=== PATIENT | female | born 1935 | race Caucasian/White ===

== ENCOUNTER 2018-06-27 16:02 | Inpatient (IN) | payer MEDICARE, OTHER ==
[~2018-06-27] VITALS: Ht 165.1 cm; Wt 72.3 kg
[~2018-06-27 16:02] MED LIST: ATEN50TA PO; ROSU10TA55 PO; SITA50TA2 PO; VALS1TAB78 PO
--- NOTE | 2018-06-27 16:40 | ERD ---
ER Documentation Chief Complaint Chief Complaint abdominal pain HPI The patient is a 82-year-old female, presenting with right-sided LBP, radiating to the flank, and right lower abdomen. He vomited 3 times initially food then mucus. She had similar symptoms previously from kidney stone. She denies fever, chills, neck pain, chest pain, dyspnea, diarrhea, constipation. She does not smoke, drink Past medical history: Dyslipidemia, hypertension, history of kidney stones, diabetes mellitus Past surgical history: Cholecystectomy ROS All systems reviewed and are negative except as per history of present illness. Medications Home Meds Reported Medications Atorvastatin Calcium (Atorvastatin Calcium) Unknown Strength Tablet, 1 TAB PO QHS, #30 TAB 06/27/18 Insulin Glargine,Hum.rec.anlog (Basaglar Kwikpen U-100) 100 Unit/1 Ml Insuln.pen, 40 UNIT SC QHS, EA 06/27/18 Insulin Aspart* (Novolog Insulin Pen*) 100 Unit/Ml Soln, 0 SC WITH MEALS, EA 06/27/18 Insulin Aspart* (Novolog Insulin Pen*) 100 Unit/Ml Soln, 1 UNIT SC WITH LUNCH, EA INJECT 10-12 UNITS 06/27/18 Aspirin* (Aspirin* EC) 81 Mg Tablet.dr, 81 MG PO DAILY, TAB 06/27/18 Sitagliptin Phos-Metformin Hcl (Janumet XR) 100-1,000 Mg Tbmp.24hr, 1 TAB PO WITH DINNER, #30 TAB 06/27/18 Losartan/Hydrochlorothiazide (Hyzaar 100-12.5 Tablet) 1 Each Tablet, 1 EACH PO QAM, TAB 06/27/18 Atenolol* (Atenolol*) 50 Mg Tablet, 50 MG PO DAILY, #30 TAB 06/27/18 Discontinued Reported Medications Rosuvastatin Calcium* (Crestor*) 10 Mg Tablet, 10 MG PO HS, TAB 03/23/14 Atenolol* (Atenolol*) 50 Mg Tablet, 50 MG PO DAILY, TAB 03/23/14 Valsartan-Hydrochlorothiazide (Valsartan-HCTZ) 160-25 Mg Tablet, 1 EACH PO DAILY, TAB 03/23/14 Discontinued Scripts Sitagliptin* (Januvia*) 50 Mg Tab, 25 MG PO DAILY for 30 Days Prov:ANGELA TRUJILLO 03/27/14 Allergies Allergies: Coded Allergies: No Known Allergy (Verified , 06/27/18) PMhx/Soc History of Surgery: Yes (CHOLECYSTECTOMY, CATARACT) Anesthesia Reaction: No Hx Neurological Disorder: No Hx Respiratory Disorders: No Hx Cardiac Disorders: No Hx Psychiatric Problems: No Hx Miscellaneous Medical Probl: No Hx Alcohol Use: No Hx Substance Use: No Hx Tobacco Use: No Physical Exam Vitals Vital Signs Date Temp Pulse Resp B/P (MAP) Pulse Ox O2 O2 Flow FiO2 Time Delivery Rate 06/27/18 76 18 155/73 98 Nasal 2.0 20:45 (100) Cannula 06/27/18 98.6 80 19 152/68 97 Room Air 18:45 (96) 06/27/18 97.3 74 20 214/84 96 16:08 (127) Physical Exam Const: No acute distress. Head: Atraumatic. Eyes: Normal Conjunctiva. ENT: Normal External Ears, Nose and Mouth. Neck: Full range of motion. No meningismus. Resp: Clear to auscultation bilaterally. Cardio: Regular rate and rhythm. Abd: Soft, non distended, normal bowel sounds, right flank/right lower quadrant tenderness, no rigidity, rebound, CVA tenderness Skin: No petechiae or rashes. Back: No midline or flank tenderness. Ext: No cyanosis, or edema. Neur: Awake and alert. No focal deficit Psych: Normal Mood and Affect. Result Diagram: 06/27/18 1716 06/27/18 1716 Results 24 hrs Laboratory Tests Test 06/27/18 16:49 06/27/18 17:16 Bedside Urine pH (LAB) 5.0 Bedside Urine Protein (LAB) Negative Bedside Urine Glucose (UA) Negative Bedside Urine Ketones (LAB) Negative Bedside Urine Blood 2+ Bedside Urine Nitrite (LAB) Negative Bedside Urine Leukocyte Esterase (L Negative White Blood Count 15.3 10^3/ul Red Blood Count 4.50 10^6/ul Hemoglobin 13.5 g/dl Hematocrit 40.1 % Mean Corpuscular Volume 89.1 fl Mean Corpuscular Hemoglobin 30.0 pg Mean Corpuscular Hemoglobin Concent 33.7 g/dl Red Cell Distribution Width 12.8 % Platelet Count 275 10^3/UL Mean Platelet Volume 9.8 fl Immature Granulocytes % 0.700 % Neutrophils % 81.2 % Lymphocytes % 10.6 % Monocytes % 6.4 % Eosinophils % 0.8 % Basophils % 0.3 % Nucleated Red Blood Cells % 0.0 /100WBC Immature Granulocytes # 0.100 10^3/ul Neutrophils # 12.5 10^3/ul Lymphocytes # 1.6 10^3/ul Monocytes # 1.0 10^3/ul Eosinophils # 0.1 10^3/ul Basophils # 0.0 10^3/ul Nucleated Red Blood Cells # 0.0 10^3/ul Sodium Level 140 mmol/L Potassium Level 3.8 mmol/L Chloride Level 103 mmol/L Carbon Dioxide Level 23 mmol/L Anion Gap 14 Blood Urea Nitrogen 37 mg/dl Creatinine 1.68 mg/dl Est Glomerular Filtrat Rate mL/min mL/min Glucose Level 221 mg/dl Calcium Level 9.2 mg/dl Total Bilirubin 0.5 mg/dl Direct Bilirubin 0.00 mg/dl Indirect Bilirubin 0.5 mg/dl Aspartate Amino Transf (AST/SGOT) 21 IU/L Alanine Aminotransferase (ALT/SGPT) 21 IU/L Alkaline Phosphatase 75 IU/L Total Protein 7.3 g/dl Albumin 4.1 g/dl Globulin 3.20 g/dl Albumin/Globulin Ratio 1.28 Lipase 59 U/L Current Medications Medications Dose Sig/Fredrick Start Time Status Last (Trade) Ordered Route PRN Stop Time Admin Dose Reason Admin Morphine 2 mg ONCE STAT 06/27/18 DC 06/27/18 Sulfate IV 18:06 18:24 (morphine) 06/27/18 18:12 Ondansetron 4 mg ONCE STAT 06/27/18 DC 06/27/18 HCl (Zofran IV 18:06 18:24 Inj) 06/27/18 18:12 Morphine 4 mg ONCE STAT 06/27/18 DC 06/27/18 Sulfate IV 18:56 19:01 (morphine) 06/27/18 18:57 Ceftriaxone 50 ml @ ONCE ONCE 06/27/18 DC 06/27/18 Sodium 100 mls/hr IVPB 19:30 19:26 06/27/18 19:59 1 mg ONCE STAT 06/27/18 DC 06/27/18 Hydromorphone IV 20:07 20:13 HCl 06/27/18 20:08 (Dilaudid) 1 mg STK-MED 06/27/18 DC Hydromorphone ONCE .ROUTE 20:09 HCl 06/27/18 20:10 (Dilaudid) Atenolol 50 mg DAILY PO 06/28/18 UNV (Tenormin) 09:00 Insulin 40 unit QHS SC 06/27/18 UNV Glargine 21:00 (Lantus) Sodium 1,000 ml @ [id number] IV 06/27/18 UNV Chloride 80 mls/hr 20:24 IV Flush 3 ml PER 06/27/18 UNV (NS 3 ml) PROTOCOL IV 20:30 Ondansetron 4 mg Q6H PRN 06/27/18 UNV HCl (Zofran IV 20:30 Inj) NAUSEA/VOMITI NG 650 mg Q6H PRN 06/27/18 UNV Acetaminophen PO .PAIN 1-3 20:30 (Tylenol OR TEMP Tab) 1 tab Q6H PRN 06/27/18 UNV Acetaminophen PO .MOD PAIN 20:30 / 4-6 Hydrocodone Bitart (Keller (5/325)) Morphine 2 mg Q4H PRN 06/27/18 UNV Sulfate IV .SEVERE 20:30 (morphine) PAIN 7-10 Docusate 100 mg Q12H PRN 06/27/18 UNV Sodium PO 20:30 (Colace) .CONSTIPATION Bisacodyl 5 mg DAILY PRN 06/27/18 UNV (Dulcolax) PO 20:30 .CONSTIPATION Tamsulosin 0.4 mg HS PO 06/27/18 UNV HCl 21:00 (Flomax) Procedures/[place] [address] Radiology Main Line: [phone] DIAGNOSTIC IMAGING REPORT Patient: ARIEL MENDES : 1935 Age: 82 Sex: F MR #: [id number] DOS: 06/27/18 5761 Ordering MD: CARRIE RUELAS MD Location: E/R Room/Bed: PROCEDURE: CT Abdomen and Pelvis Without Intravenous Contrast CLINICAL INDICATION: Right-sided abdominal pain. TECHNIQUE: Axial computed tomography images of the abdomen and pelvis without intravenous contrast. Sagittal and coronal reformatted images were created and reviewed. CTDIvol (mGy) = 12.79; total DLP (mGy-cm) = 676.23. This CT exam was performed using one or more of the following dose reduction techniques: automated exposure control, adjustment of the mA and/or kV according to patient size, and/or use of iterative reconstruction technique. DICOM images are available. COMPARISON: None FINDINGS: LUNG BASES: Unremarkable. No mass. No consolidation. ABDOMEN: LIVER: Unremarkable. GALLBLADDER AND BILE DUCTS: The gallbladder is surgically absent. No biliary dilatation. PANCREAS: Unremarkable. No ductal dilation. SPLEEN: Unremarkable. No splenomegaly. ADRENALS: Unremarkable. No mass. KIDNEYS AND URETERS: Mild to moderate right hydroureteronephrosis. Stranding of the right perinephric fat. There is an obstructing distal right ureteral calculus measuring 10 x 7 mm. Findings are consistent with right obstructive uropathy. Nonobstructing bilateral renal calculi are present. The largest calculus is seen in the lower pole of the left kidney measuring 14 mm in diameter. Additional 2-3 mm bilateral calculi are noted. The left ureter is unremarkable. No left-sided obstructive uropathy. STOMACH AND BOWEL: Mild diverticulosis of the colon. No findings of acute diverticulitis. No obstruction. No acute abnormality of the stomach or small [place] wel. PELVIS: APPENDIX: No findings to suggest acute appendicitis. BLADDER: Unremarkable. No stones. REPRODUCTIVE: Unremarkable as visualized. ABDOMEN and PELVIS: INTRAPERITONEAL SPACE: Unremarkable. No free air. No significant fluid collection. BONES/JOINTS: Degenerative spine changes are noted. No acute fracture. No dislocation. SOFT TISSUES: There is fibrosis of the subcutaneous fat of the anterior abdominal wall likely related to multiple injections. VASCULATURE: The abdominal aorta is atherosclerotic. No aneurysm. LYMPH NODES: Unremarkable. No enlarged lymph nodes. IMPRESSION: 1. Mild to moderate right hydroureteronephrosis. Stranding of the right perinephric fat. There is an obstructing distal right ureteral calculus measuring 10 x 7 mm. Findings are consistent with right obstructive uropathy. 2. Mild diverticulosis of the colon. No findings of acute diverticulitis. RPTAT: [facility] Cleve Martínez Physician Puppy Trainer Date Time Electronically viewed and signed by Cleve Martínez, Physician Puppy Trainer on 06/27/2018 18:21 C/ CC: CARRIE RUELAS MD [id number] MEDICAL MAKING DECISION: The patient is 82-year-old female, presenting with acute right ureterolithiasis, consistent with acute right obstructive uropathy, TRACY. She was treated with morphine 2 mg IV for pain, Zofran formula IV for nausea, Rocephin 1 g IV empirically with good response, blood pressure improved The differential diagnoses considered include but are not limited to infected kidney stones, cholelithiasis, cholecystitis, choledocholithiasis, cholangitis, pancreatitis, hepatitis, gastritis, peptic ulcer disease, gastric ulcer, appendicitis, cystitis, diverticulitis, partial small bowel obstruction. Consultation: I discussed the patient with the on-call urologist Dr. Vazquez, who was made aware of the patient condition, the CT scan finding. He accepted the consult Departure Diagnosis: Primary Impression: Ureterolithiasis Additional Impression: TRACY (acute kidney injury) Condition: Stable Comments I discussed the findings with the patient. I discussed the patient with the hospitalist Dr Mckeon at 7:35 pm who was made aware of the lab, the treatment, the patient condition. The patient is admitted to [facility] Disclaimer: Inadvertent spelling and grammatical errors are likely due to EHR/dictation software use and do not reflect on the overall quality of patient care. Also, please note that the electronic time recorded on this note does not necessarily reflect the actual time of the patient encounter. CARRIE RUELAS MD Jun 27, 2018 16:40
[2018-06-27] MEDS ORDERED: morphine 2 MG INJ IV STA (18:06)
[2018-06-27] MEDS ORDERED: ONDANSETRON 4 MG INJ IV STA (18:06)
[2018-06-27] MEDS ORDERED: morphine 4 MG/ML VIAL IV STA (18:56)
[2018-06-27] MEDS ORDERED: CEFTRIAXONE 1 GM/50 ML (PMX) 50 ML IVPB ONE (19:30)
[2018-06-27] MEDS ORDERED: LOSA1TAB9 PO (19:56)
[2018-06-27] MEDS ORDERED: ATEN50TA PO (19:56)
[2018-06-27] MEDS ORDERED: ASPI-817 PO (19:58)
[2018-06-27] MEDS ORDERED: SITA1TBM7 PO (19:58)
[2018-06-27] MEDS ORDERED: NOVO3I SC ×2 (19:59)
[2018-06-27] MEDS ORDERED: INSU100I33 SC (20:00)
[2018-06-27] MEDS ORDERED: ATOR10TA65 PO (20:00)
[2018-06-27] MEDS ORDERED: HYDROmorphONE 2 MG/ML SYG IV STA (20:07)
[2018-06-27] MEDS ORDERED: HYDROmorphONE 1 MG/ML SYG ONE (20:09)
[2018-06-27] MEDS ORDERED: SOD CHLORIDE 0.9% 1,000 ML IV SCH (20:24)
[2018-06-27] MEDS ORDERED: BISACODYL (EC) 5 MG TAB PO PRN (20:30)
[2018-06-27] MEDS ORDERED: DOCUSATE SODIUM 100 MG CAP PO PRN (20:30)
[2018-06-27] MEDS ORDERED: HYDROCODONE/APAP (5/325) TAB PO PRN (20:30)
[2018-06-27] MEDS ORDERED: ONDANSETRON 4 MG INJ IV PRN (20:30)
[2018-06-27] MEDS ORDERED: morphine 2 MG INJ IV PRN (20:30)
[2018-06-27] MEDS ORDERED: ACETAMINOPHEN 325 MG TAB PO PRN (20:30)
[2018-06-27] MEDS ORDERED: NACL 0.9% 3 ML SYG IV SCH (20:30)
--- NOTE | 2018-06-27 20:32 | HP ---
Date/Time of Note Date/Time of Note DATE: 06/27/18 TIME: 20:31 Assessment/Plan VTE Prophylaxis SCD applied (from Nsg): Yes Pharmacological prophylaxis: NA/contraindicated Pharm contraindication: low risk/ambulating Lines/Catheters IV Catheter Type (from Nrsg): Saline Lock Assessment/Plan Hospital Course This is a 82-year-old female being admitted to the [facility] floor for: #1 obstructive uropathy: Secondary to right-sided 10 x 7 mm renal calculus resulting in hydroureteronephrosis. Patient's creatinine is 1.6 today. In 2013 it was 0.89. At the current time she is urinating. She has been seen by the urologist Dr. Martinez already. Plan is for cystoscopy and possible stent versus laser lithotripsy in the a.m. In the meantime we will put the patient on IV fluid hydration with normal saline. We will put the patient on Flomax will be mindful of patient's blood pressure. N.p.o. after midnight. No antibiotics at the current time as patient is afebrile and no signs of any overt infection. #2 hypertension: Patient did present with blood pressures in the 200s however this was likely secondary to pain, blood pressure has gone down to more acceptable levels at the current time. However given patient's acute kidney injury will at the current time hold patient's orbits/HCTZ pill. Will give the patient a dose of Norvasc 2.5 mg. We will need to monitor patient blood pressur e closely as well as she also can be put on Flomax. Discontinue Flomax if blood pressure drops. #3 acute kidney injury: Patient's previous creatinine on file was 0.89 in 2013. It is 1.6 today this is likely a combination of obstructive uropathy as well as ARB effect. Will hold ARB at the current time, continue IV fluid hydration. Urology is already on board. Monitor renal function. Avoid nephrotoxic agents avoid NSAIDs, monitor kidney function. #4 diabetes mellitus: We will check hemoglobin A1c, insulin sliding scale, will adjust patient's Lantus dose overnight as patient will be n.p.o. Resume home regimen once patient is able to tolerate p.o., will hold home oral medications at the current time. #5 #5 hyperlipidemia: We will need to confirm patient's home statin dose, at the cu rrent time we will put the patient on Lipitor 20 mg p.o. daily #6 DVT GI prophylaxis: SCDs, no GI prophylaxis indicated Further treatment strategy will be implemented as per the clinical course. Result Diagram: 06/27/18 1716 06/27/18 1716 Results 24hrs Laboratory Tests Test 06/27/18 16:49 06/27/18 17:16 Bedside Urine pH (LAB) 5.0 Bedside Urine Protein (LAB) Negative Bedside Urine Glucose (UA) Negative Bedside Urine Ketones (LAB) Negative Bedside Urine Blood 2+ H Bedside Urine Nitrite (LAB) Negative Bedside Urine Leukocyte Esterase (L Negative White Blood Count 15.3 #H Red Blood Count 4.50 # Hemoglobin 13.5 # Hematocrit 40.1 # Mean Corpuscular Volume 89.1 Mean Corpuscular Hemoglobin 30.0 Mean Corpuscular Hemoglobin Concent 33.7 Red Cell Distribution Width 12.8 Platelet Count 275 Mean Platelet Volume 9.8 Immature Granulocytes % 0.700 H Neutrophils % 81.2 H Lymphocytes % 10.6 L Monocytes % 6.4 Eosinophils % 0.8 Basophils % 0.3 Nucleated Red Blood Cells % 0.0 Immature Granulocytes # 0.100 H Neutrophils # 12.5 H Lymphocytes # 1.6 Monocytes # 1.0 H Eosinophils # 0.1 Basophils # 0.0 Nucleated Red Blood Cells # 0.0 Sodium Level 140 Potassium Level 3.8 Chloride Level 103 Carbon Dioxide Level 23 Anion Gap 14 H Blood Urea Nitrogen 37 H Creatinine 1.68 H Est Glomerular Filtrat Rate mL/min Glucose Level 221 H Calcium Level 9.2 Total Bilirubin 0.5 Direct Bilirubin 0.00 Indirect Bilirubin 0.5 Aspartate Amino Transf (AST/SGOT) 21 Alanine Aminotransferase (ALT/SGPT) 21 Alkaline Phosphatase 75 Total Protein 7.3 Albumin 4.1 Globulin 3.20 Albumin/Globulin Ratio 1.28 Lipase 59 HPI/ROS Admit Date/Time Admit Date/Time Hx of Present Illness Chief complaint: Right lower quadrant pain, right flank pain This is a 82-year-old female with a past medical history of kidney stones diabetes and hypertension who presented to the emergency department complaining of severe right flank pain. Patient reports nausea and vomiting. She denies any dysuria. She has a history of kidney stones for which she required in the past uteroscopy and laser lithotripsy. CT scan of the abdomen pelvis showed mild to moderate right hydroureteronephrosis with an obstructing right ureteral calculus measuring 10 x 7 mm. There also is a nonobstructing 14 mm stone in the left kidney. Allergies: NKDA Medications: See Jun Const: As per HPI Eyes : No pain discharge or redness or change in visual acuity ENT: No pain, sore throat, congestion, congestion, dysphagia or discharge Respiratory: No shortness of breath, cough, sputum, wheezing, or pleuritic pain Cardiovascular: No chest pain, palpitation, PND, or edema GI : no change in appetite, abdominal pain, nausea, vomiting, diarrhea, constipation, or change in the color his stool Genitourinary: As per HPI Musculoskeletal: No joint pain, back pain, neck pain, restricted range of motion in neck or joints Skin: No rash, bruising or hives Neuro: No headache, dizziness, syncope, seizure, focal weakness Endocrine: No polyuria, polydipsia, temperature intolerance Psych: No hallucination, depression, anxiety or suicidal ideation PMH/Family/Social Past Medical History History of nephrolithiasis, diabetes mellitus, hypertension, hyperlipidemia Coded Allergies: No Known Allergy (Verified , 06/27/18) Past Surgical History Laser lithotripsy, ureteroscopy, cholecystectomy Family History Significant Family History: no pertinent family hx Social History Alcohol Use: none Smoking Status: Never smoker Drug Use: none Exam/Review of Systems Vital Signs Vitals Vital Signs Date Temp Pulse Resp B/P (MAP) Pulse Ox O2 O2 Flow FiO2 Time Delivery Rate 06/27/18 98.6 80 19 152/68 97 Room Air 18:45 (96) Exam Exam General: Patient is a pleasant female currently lying in bed in no acute distress after being medicated HEENT: Atraumatic, normocephalic. The pupils are equal, round and reactive. Extraocular motor are intact Neck: Supple with full range of motion. No rigidity or meningismus Chest: Nontender Lungs: Clear to auscultation bilaterally no crackles rales or wheezing Heart: Normal S1-S2, Regular rhythm and rate. No murmur, S3, or S4 Abdomen: Soft, nontender, nondistended, normal bowel sounds, mild right CVA tenderness palpation Extremities: Normal to inspection, no edema no cyanosis Neurologic: Normal mental status, speech normal, cranial nerves II through XII are intact, motor and sensory are intact, Additional Comments PROCEDURE: CT Abdomen and Pelvis Without Intravenous Contrast CLINICAL INDICATION: Right-sided abdominal pain. TECHNIQUE: Axial computed tomography images of the abdomen and pelvis without intravenous contrast. Sagittal and coronal reformatted images were created and reviewed. CTDIvol (mGy) = 12.79; total DLP (mGy-cm) = 676.23. This CT exam was performed using one or more of the following dose reduction techniques: automated exposure control, adjustment of the mA and/or kV according to patient size, and/or use of iterative reconstruction technique. DICOM images are available. COMPARISON: None FINDINGS: LUNG BASES: Unremarkable. No mass. No consolidation. ABDOMEN: LIVER: Unremarkable. GALLBLADDER AND BILE DUCTS: The gallbladder is surgically absent. No biliary dilatation. PANCREAS: Unremarkable. No ductal dilation. SPLEEN: Unremarkable. No splenomegaly. ADRENALS: Unremarkable. No mass. KIDNEYS AND URETERS: Mild to moderate right hydroureteronephrosis. Stranding of the right perinephric fat. There is an obstructing distal right ureteral calculus measuring 10 x 7 mm. Findings are consistent with right obstructive uropathy. Nonobstructing bilateral renal calculi are present. The largest calculus is seen in the lower pole of the left kidney measuring 14 mm in diameter. Additional 2-3 mm bilateral calculi are noted. The left ureter is unremarkable. No left-sided obstructive uropathy. STOMACH AND BOWEL: Mild diverticulosis of the colon. No findings of acute diverticulitis. No obstruction. No acute abnormality of the stomach or small bowel. PELVIS: APPENDIX: No findings to suggest acute appendicitis. BLADDER: Unremarkable. No stones. REPRODUCTIVE: Unremarkable as visualized. ABDOMEN and PELVIS: INTRAPERITONEAL SPACE: Unremarkable. No free air. No significant fluid collection. BONES/JOINTS: Degenerative spine changes are noted. No acute fracture. No dislocation. SOFT TISSUES: There is fibrosis of the subcutaneous fat of the anterior abdominal wall likely related to multiple injections. VASCULATURE: The abdominal aorta is atherosclerotic. No aneurysm. LYMPH NODES: Unremarkable. No enlarged lymph nodes. IMPRESSION: 1. Mild to moderate right hydroureteronephrosis. Stranding of the right perinephric fat. There is an obstructing distal right ureteral calculus measuring 10 x 7 mm. Findings are consistent with right obstructive uropathy. 2. Mild diverticulosis of the colon. No findings of acute diverticulitis. RPTAT: [facility] Cleve Martínez Physician Date Time Electronically viewed and signed by Cleve Martínez Physician [employer]ident Responder on 06/27/2018 18:21 C/ CC: CARRIE RUELAS MD [id number] NATY GRADY Jun 27, 2018 20:32
[2018-06-27] MEDS ORDERED: TAMSULOSIN (SR) 0.4 MG CAP PO SCH (21:00)
[2018-06-27] MEDS ORDERED: INSULIN GLARGINE [LANtus] 3 ML PEN SC SCH (21:00)
--- NOTE | 2018-06-27 21:39 | CONS ---
Assessment/Plan Assessment/Plan Hospital Course (Demo Recall) 82-year-old female presented to the hospital with severe right flank pain associated with nausea and vomiting. She underwent a CT scan of the abdomen and pelvis and that showed: 1- Mild to moderate right hydroureteronephrosis. Stranding of the right perinephric fat. There is an obstructing distal right ureteral calculus measuring 10 x 7 mm. Findings are consistent with right obstructive uropathy. 2. Mild diverticulosis of the colon. No findings of acute diverticulitis. Patient does have a history of kidney stones and has undergone what appears to be ureteroscopy and laser lithotripsy in the past. Patient remains nauseated and vomiting. On the CT scan she does have a 14 mm stone in the lower pole of the left kidney and that is not symptomatic. On the right side however the stone is 7 x 10 mm in size and it is obstructing and it is located at the lower edge of the sacroiliac joint area. Impression: Right ureteral stone 7 x 10 mm with obstruction and hydronephrosis. Plan: Cystoscopy, Right ureteroscopy, laser lithotripsy and insertion of right ureteral JJ stent. I did explain the procedure to the patient and her son Yoel. I also discussed the possible risks and complications. Success and failure. If I am able to remove the stone I will put the stent with a string attached to its distal end and bring that to the outside. If however I am not able to remove the stone I will try to put the JJ stent and bring her later after 3 weeks and repeat the procedure and by then the ureter is dilated and the procedure would be much easier. They understood all of that and are agreeable to proceed. I will try to schedule her for tomorrow if time is available in the operating room. Consultation Date/Type/Reason Admit Date/Time June 27, 2018 Date of Consultation: Jun 27, 2018 Type of Consult Urology Reason for Consultation Right ureteral stone with obstruction Requesting Provider: NATY GRADY Date/Time of Note DATE: 06/27/18 TIME: 21:28 Hx of Present Illness 82-year-old female presented to the hospital with severe right flank pain associated with nausea and vomiting. She underwent a CT scan of the abdomen and pelvis and that showed: 1- Mild to moderate right hydroureteronephrosis. Stranding of the right perinephric fat. There is an obstructing distal right ureteral calculus measuring 10 x 7 mm. Findings are consistent with right obstructive uropathy. 2. Mild diverticulosis of the colon. No findings of acute diverticulitis. Patient does have a history of kidney stones and has undergone what appears to be ureteroscopy and laser lithotripsy in the past. Constitutional: no complaints Eyes: no complaints ENT: no complaints Respiratory: no complaints; No shortness of breath Cardiovascular: no complaints Gastrointestinal: no complaints, nausea, vomiting Genitourinary: flank pain (Right side) Musculoskeletal: no complaints Skin: no complaints Neurologic: no complaints Endocrine: no complaints Lymphatic: no complaints Psychological: no complaints Immunologic: no complaints Past Medical History Medical History: diabetes, high cholesterol, hypertension Home Meds Reported Medications Atorvastatin Calcium (Atorvastatin Calcium) Unknown Strength Tablet, 1 TAB PO QHS, #30 TAB 06/27/18 Insulin Glargine,Hum.rec.anlog (Basaglar Kwikpen U-100) 100 Unit/1 Ml Insuln.pen, 40 UNIT SC QHS, EA 06/27/18 Insulin Aspart* (Novolog Insulin Pen*) 100 Unit/Ml Soln, 0 SC WITH MEALS, EA 06/27/18 Insulin Aspart* (Novolog Insulin Pen*) 100 Unit/Ml Soln, 1 UNIT SC WITH LUNCH, EA INJECT 10-12 UNITS 06/27/18 Aspirin* (Aspirin* EC) 81 Mg Tablet.dr, 81 MG PO DAILY, TAB 06/27/18 Sitagliptin Phos-Metformin Hcl (Janumet XR) 100-1,000 Mg Tbmp.24hr, 1 TAB PO WITH DINNER, #30 TAB 06/27/18 Losartan/Hydrochlorothiazide (Hyzaar 100-12.5 Tablet) 1 Each Tablet, 1 EACH PO QAM, TAB 06/27/18 Atenolol* (Atenolol*) 50 Mg Tablet, 50 MG PO DAILY, #30 TAB 06/27/18 Discontinued Reported Medications Rosuvastatin Calcium* (Crestor*) 10 Mg Tablet, 10 MG PO HS, TAB 03/23/14 Atenolol* (Atenolol*) 50 Mg Tablet, 50 MG PO DAILY, TAB 03/23/14 Valsartan-Hydrochlorothiazide (Valsartan-HCTZ) 160-25 Mg Tablet, 1 EACH PO DA SADE, TAB 03/23/14 Discontinued Scripts Sitagliptin* (Januvia*) 50 Mg Tab, 25 MG PO DAILY for 30 Days Prov:ANGELA TRUJILLO. 03/27/14 Medications Current Medications Atenolol (Tenormin) 50 mg DAILY PO ; Start 06/28/18 at 09:00; Status UNV Insulin Glargine (Lantus) 40 unit QHS SC ; Start 06/27/18 at 21:00; Status UNV Sodium Chloride 1,000 ml @ 80 mls/hr [id number] IV ; Start 06/27/18 at 20:24 IV Flush (NS 3 ml) 3 ml PER PROTOCOL IV ; Start 06/27/18 at 20:30 Ondansetron HCl (Zofran Inj) 4 mg Q6H PRN IV NAUSEA/VOMITING; Start 06/27/18 at 20:30 Acetaminophen (Tylenol Tab) 650 mg Q6H PRN PO .PAIN 1-3 OR TEMP; Start 06/27/18 at 20:30 Acetaminophen/ Hydrocodone Bitart ([place] (5/325)) 1 tab Q6H PRN PO .MOD PAIN 4- 6; Start 06/27/18 at 20:30 Morphine Sulfate (morphine) 2 mg Q4H PRN IV .SEVERE PAIN 7-10; Start 06/27/18 at 20:30 Docusate Sodium (Colace) 100 mg Q12H PRN PO .CONSTIPATION; Start 06/27/18 at 20:30 Bisacodyl (Dulcolax) 5 mg DAILY PRN PO .CONSTIPATION; Start 06/27/18 at 20:30 Tamsulosin HCl (Flomax) 0.4 mg HS PO ; Start 06/27/18 at 21:00 Allergies: Coded Allergies: No Known Allergy (Verified , 06/27/18) Past Surgical History Past Surgical Hx: cholecystectomy, other (Bilateral eye surgeries) Social History Alcohol Use: none Smoking Status: Never smoker Other Social History She 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 4 para 2, 2 abortions and 2 normal deliveries Exam/Review of Systems Exam Vitals Vital Signs Date Temp Pulse Resp B/P (MAP) Pulse Ox O2 O2 Flow FiO2 Time Delivery Rate 06/27/18 76 18 155/73 98 Nasal 2.0 20:45 (100) Cannula 06/27/18 98.6 18:45 Constitutional: alert Psych: no complaints Head: normocephalic Eyes: nl conjunctiva ENMT: nl external ears & nose Neck: supple, non-tender Respiratory: normal air movement; No wheezing Cardiovascular: No jugular venous distention (JVD) Gastrointestinal: tender (Right side of abdomen) Genitourinary - Female: CVA tenderness (Right flank) Musculoskeletal: nl extremities to inspection Extremities: No calf tenderness Neurological: nl mental status Skin: nl turgor Results Result Diagram: 06/27/18 1716 06/27/18 1716 Results 24hrs Laboratory Tests Test 06/27/18 16:49 06/27/18 17:16 Bedside Urine pH (LAB) 5.0 Bedside Urine Protein (LAB) Negative Bedside Urine Glucose (UA) Negative Bedside Urine Ketones (LAB) Negative Bedside Urine Blood 2+ H Bedside Urine Nitrite (LAB) Negative Bedside Urine Leukocyte Esterase (L Negative White Blood Count 15.3 #H Red Blood Count 4.50 # Hemoglobin 13.5 # Hematocrit 40.1 # Mean Corpuscular Volume 89.1 Mean Corpuscular Hemoglobin 30.0 Mean Corpuscular Hemoglobin Concent 33.7 Red Cell Distribution Width 12.8 Platelet Count 275 Mean Platelet Volume 9.8 Immature Granulocytes % 0.700 H Neutrophils % 81.2 H Lymphocytes % 10.6 L Monocytes % 6.4 Eosinophils % 0.8 Basophils % 0.3 Nucleated Red Blood Cells % 0.0 Immature Granulocytes # 0.100 H Neutrophils # 12.5 H Lymphocytes # 1.6 Monocytes # 1.0 H Eosinophils # 0.1 Basophils # 0.0 Nucleated Red Blood Cells # 0.0 Sodium Level 140 Potassium Level 3.8 Chloride Level 103 Carbon Dioxide Level 23 Anion Gap 14 H Blood Urea Nitrogen 37 H Creatinine 1.68 H Est Glomerular Filtrat Rate mL/min Glucose Level 221 H Calcium Level 9.2 Total Bilirubin 0.5 Direct Bilirubin 0.00 Indirect Bilirubin 0.5 Aspartate Amino Transf (AST/SGOT) 21 Alanine Aminotransferase (ALT/SGPT) 21 Alkaline Phosphatase 75 Total Protein 7.3 Albumin 4.1 Globulin 3.20 Albumin/Globulin Ratio 1.28 [address] scan of the abdomen and pelvis:. 1- Mild to moderate right hydroureteronephrosis. Stranding of the right perinephric fat. There is an obstructing distal right ureteral calculus measuring 10 x 7 mm. Findings are consistent with right obstructive uropathy. 2. Mild diverticulosis of the colon. No findings of acute diverticulitis. Medications Medication Current Medications Atenolol (Tenormin) 50 mg DAILY PO ; Start 06/28/18 at 09:00; Status UNV Insulin Glargine (Lantus) 40 unit QHS SC ; Start 06/27/18 at 21:00; Status UNV Sodium Chloride 1,000 ml @ 80 mls/hr [id number] IV ; Start 06/27/18 at 20:24 IV Flush (NS 3 ml) 3 ml PER PROTOCOL IV ; Start 06/27/18 at 20:30 Ondansetron HCl (Zofran Inj) 4 mg Q6H PRN IV NAUSEA/VOMITING; Start 06/27/18 at 20:30 Acetaminophen (Tylenol Tab) 650 mg Q6H PRN PO .PAIN 1-3 OR TEMP; Start 06/27/18 at 20:30 Acetaminophen/ Hydrocodone Bitart ([place] (5/325)) 1 tab Q6H PRN PO .MOD PAIN 4- 6; Start 06/27/18 at 20:30 Morphine Sulfate (morphine) 2 mg Q4H PRN IV .SEVERE PAIN 7-10; Start 06/27/18 at 20:30 Docusate Sodium (Colace) 100 mg Q12H PRN PO .CONSTIPATION; Start 06/27/18 at 20:30 Bisacodyl (Dulcolax) 5 mg DAILY PRN PO .CONSTIPATION; Start 06/27/18 at 20:30 Tamsulosin HCl (Flomax) 0.4 mg HS PO ; Start 06/27/18 at 21:00 ASIM DALLAS MD Jun 27, 2018 21:39
[2018-06-27] MEDS ORDERED: SOD CHLORIDE 0.45% 1,000 ML IV SCH (22:00)
[2018-06-27] MEDS ORDERED: INSULIN GLARGINE [LANTus] (100 UNITS/ML) SYG SC SCH (22:04)
[2018-06-27] MEDS ORDERED: HYDROmorphONE 0.5 MG/0.5 ML SYG IV PRN (22:30)
[2018-06-27] MEDS ORDERED: AMLODIPINE 2.5 MG TAB PO ONE (23:00)
[2018-06-27] MEDS ORDERED: hydrALAzine 20 MG INJ IV PRN (23:00)
[2018-06-27] MEDS ORDERED: INSULIN GLARGINE [LANTus] (100 UNITS/ML) SYG SC ONE (23:30)
[2018-06-27 23:48] VITALS: Ht 165.1 cm; Wt 72.3 kg
[2018-06-27 23:58] VITALS: BP 137/68; PULSE 70; RESP 16
[2018-06-28] VITALS (16 sets, daily range): BP systolic 82–131; BP diastolic 46–63; PULSE 71–95; RESP 11–20
[2018-06-28] MEDS: DEXTROSE 5%-0.45% NACL 1,000 ML IV SCH ×2 (00:12→12:00)
[2018-06-28] MEDS ORDERED: DEXTROSE 50% 50 ML SYRINGE IV PRN ×2 (02:00)
[2018-06-28] MEDS ORDERED: GLUCOSE GEL 15 GRAM TUBE BUCCAL PRN (02:00)
[2018-06-28] MEDS ORDERED: GLUCOSE GEL 15 GRAM TUBE PO PRN ×2 (02:00)
[2018-06-28] MEDS ORDERED: GLUCAGON 1 MG INJ IM PRN (02:00)
[2018-06-28] MEDS ORDERED: EPHEDrine SULFATE 50 MG/5 ML SYG ONE (07:00)
[2018-06-28] MEDS: ATENOLOL 50 MG TAB PO SCH (08:00)
[2018-06-28] MEDS: INSULIN ASPART [NOVOLOG] 3 ML PEN SC SCH ×4 (10:56→20:47)
[2018-06-28] MEDS ORDERED: INSULIN ASPART [NOVOLOG] 3 ML PEN SC SCH ×2 (11:40)
--- NOTE | 2018-06-28 12:25 | HPN ---
Date/Time of Note Date/Time of Note DATE: 06/28/18 TIME: 12:24 Interval H&P Admission Note Pt. seen H&P reviewed: No system changes ASIM DALLAS MD Jun 28, 2018 12:25
--- NOTE | 2018-06-28 12:25 | PREAC ---
Date/Time of Note Date/Time of Note DATE: 06/28/18 TIME: 12:23 Anesthesia Eval and Record Evaluation Time Pre-Procedure Interview DATE: 06/28/18 TIME: 12:23 Age 82 Sex female NPO: 8 hrs Preoperative diagnosis Right Kidney Stone Planned procedure Cystoscopy and Lithotripsy right side, Ureteroscopy and stent placement Past Medical History Past Medical History: Includes Cardio: HTN, Dyslipidemia Endo: Diabetes Musculoskeletal: Rheumatoid arthritis Renal: CKD GI: Obesity Heme: Anemia Surgery & Anesthesia Issues No known issue Meds Anticoagulation: No Beta Matt within 24 hr: Yes Reported Medications Atorvastatin Calcium (Atorvastatin Calcium) Unknown Strength Tablet, 1 TAB PO QHS, #30 TAB 06/27/18 Insulin Glargine,Hum.rec.anlog (Basaglar Kwikpen U-100) 100 Unit/1 Ml Insuln.pen, 40 UNIT SC QHS, EA 06/27/18 Insulin Aspart* (Novolog Insulin Pen*) 100 Unit/Ml Soln, 0 SC WITH MEALS, EA 06/27/18 Insulin Aspart* (Novolog Insulin Pen*) 100 Unit/Ml Soln, 1 UNIT SC WITH LUNCH, EA INJECT 10-12 UNITS 06/27/18 Aspirin* (Aspirin* EC) 81 Mg Tablet.dr, 81 MG PO DAILY, TAB 06/27/18 Sitagliptin Phos-Metformin Hcl (Janumet XR) 100-1,000 Mg Tbmp.24hr, 1 TAB PO WITH DINNER, #30 TAB 06/27/18 Losartan/Hydrochlorothiazide (Hyzaar 100-12.5 Tablet) 1 Each Tablet, 1 EACH PO QAM, TAB 06/27/18 Atenolol* (Atenolol*) 50 Mg Tablet, 50 MG PO DAILY, #30 TAB 06/27/18 Discontinued Reported Medications Rosuvastatin Calcium* (Crestor*) 10 Mg Tablet, 10 MG PO HS, TAB 03/23/14 Atenolol* (Atenolol*) 50 Mg Tablet, 50 MG PO DAILY, TAB 03/23/14 Valsartan-Hydrochlorothiazide (Valsartan-HCTZ) 160-25 Mg Tablet, 1 EACH PO DAILY, TAB 03/23/14 Discontinued Scripts Sitagliptin* (Januvia*) 50 Mg Tab, 25 MG PO DAILY for 30 Days Prov:ANGELA TRUJILLO 03/27/14 Current Medications Atenolol (Tenormin) 50 mg DAILY PO ; Start 06/28/18 at 09:00 IV Flush (NS 3 ml) 3 ml PER PROTOCOL IV ; Start 06/27/18 at 20:30 Ondansetron HCl (Zofran Inj) 4 mg Q6H PRN IV NAUSEA/VOMITING; Start 06/27/18 at 20:30 Acetaminophen (Tylenol Tab) 650 mg Q6H PRN PO .PAIN 1-3 OR TEMP; Start 06/27/18 at 20:30 Acetaminophen/ Hydrocodone Bitart ([place] (5/325)) 1 tab Q6H PRN PO .MOD PAIN 4- 6; Start 06/27/18 at 20:30 Docusate Sodium (Colace) 100 mg Q12H PRN PO .CONSTIPATION; Start 06/27/18 at 20:30 Bisacodyl (Dulcolax) 5 mg DAILY PRN PO .CONSTIPATION; Start 06/27/18 at 20:30 Hydromorphone HCl (Dilaudid) 0.5 mg Q4H PRN IV SEVERE PAIN LEVEL 7-10 Last administered on 06/28/18at 10:30; Admin Dose 0.5 MG; Start 06/27/18 at 22:30 Hydralazine HCl (Apresoline) 10 mg Q4H PRN IV ELEVATED BLOOD PRESSURE; Start 06/27/18 at 23:00 Dextrose/Sodium Chloride 1,000 ml @ 80 mls/hr [id number] IV Last administered on 06/28/18at 00:12; Admin Dose 80 MLS/HR; Start 06/27/18 at 23:30 Insulin Glargine (Lantus) 40 units HS SC ; Start 06/28/18 at 21:00 Miscellaneous Information 1 ea NOTE XX ; Start 06/28/18 at 02:00 Glucose (Glutose) 15 gm Q15M PRN PO DECREASED GLUCOSE; Start 06/28/18 at 02:00 Glucose (Glutose) 22.5 gm Q15M PRN PO DECREASED GLUCOSE; Start 06/28/18 at 02:00 Dextrose (D50w Syringe) 25 ml Q15M PRN IV DECREASED GLUCOSE; Start 06/28/18 at 02:00 Dextrose (D50w Syringe) 50 ml Q15M PRN IV DECREASED GLUCOSE; Start 06/28/18 at 02:00 Glucagon (Glucagen) 1 mg Q15M PRN IM DECREASED GLUCOSE; Start 06/28/18 at 02:00 Glucose (Glutose) 15 gm Q15M PRN BUCCAL DECREASED GLUCOSE; Start 06/28/18 at 02:00 Atorvastatin Calcium (Lipitor) 20 mg HS PO ; Start 06/28/18 at 21:00 Insulin Aspart (Novolog Insulin Pen) NOVOLOG *MODERATE* ALGORI... Q4 SC Last administered on 06/28/18at 10:56; Admin Dose 6 UNIT; Start 06/28/18 at 10:30 Meds reviewed: Yes Allergies Coded Allergies: No Known Allergy (Verified , 06/27/18) Allergies Reviewed: Yes Labs/Studies Labs Reviewed: Reviewed by anesthesiologist Result Diagram: 06/28/18 0439 06/28/18 0439 Laboratory Tests 06/28/18 04:39 test: N/A Studies: ECG (n/a), CXR (n/a) Pre-procedure Exam Last vitals Vital Signs Date Temp Pulse Resp B/P (MAP) Pulse Ox O2 O2 Flow FiO2 Time Delivery Rate 06/28/18 112/54 08:58 (73) 06/28/18 98.0 71 18 95 07:27 06/28/18 Room Air 01:30 06/27/18 2.0 20:45 Airway: Adequate mouth opening, Adequate thyromental dist Mallampati: Mallampati II Teeth: Normal Lung: Normal Heart: Normal ASA Physical Status ASA physical status: 3 Emergency: None Planned Anesthetic General/MAC: ETT Planned Pain Management Parenteral pain med Pre-operative Attestations Prior to commencing anesthesia and surgery, the patient was re-evaluated, there was verification of: *The patient's identity *The results of appropriate recent lab work and preoperative vital signs *The above evaluation not changing prior to induction *Anesthetic plan, risk benefits, alternative and complications discussed with patient/family; questions answered; patient/family understands, accepts and wishes to proceed. PAULA MCGRAW MD Jun 28, 2018 12:25
[2018-06-28] MEDS ORDERED: ROCURONIUM 50 MG INJ ONE (12:34)
[2018-06-28] MEDS ORDERED: PROPOFOL 20 ML ONE (12:34)
[2018-06-28] MEDS ORDERED: FENTAnyl 50 MCG/ML VIAL ONE (12:34)
[2018-06-28] MEDS ORDERED: ONDANSETRON 4 MG INJ ONE (12:42)
[2018-06-28] MEDS ORDERED: METOCLOPRAMIDE 10 MG INJ ONE (12:42)
[2018-06-28] MEDS ORDERED: PHENYLephrine (100 MCG/ML) 5ML SYG ONE (12:42)
[2018-06-28] MEDS ORDERED: DEXAMETHASONE 4 MG/ML 5 ML INJ ONE (12:42)
[2018-06-28] MEDS ORDERED: CEFAZOLIN 1 GM INJ ONE (12:42)
[2018-06-28] MEDS ORDERED: LIDOCAINE 2% 20 ML UROJET SYRINGE ONE (12:48)
[2018-06-28] MEDS ORDERED: hydrALAzine 20 MG INJ IV PRN (13:00)
[2018-06-28] MEDS ORDERED: ONDANSETRON 4 MG INJ IV PRN (13:00)
[2018-06-28] MEDS ORDERED: DIPHENHYDRAMINE 50 MG INJ IV PRN (13:00)
[2018-06-28] MEDS ORDERED: LABETALOL HCL 20MG INJ IV PRN (13:00)
[2018-06-28] MEDS ORDERED: METOCLOPRAMIDE 10 MG INJ IV PRN (13:00)
[2018-06-28] MEDS ORDERED: HYDROmorphONE 1 MG/5 ML IV SYRINGE IV PRN ×3 (13:00)
[2018-06-28] MEDS ORDERED: MEPERIDINE 25 MG INJ IV PRN (13:00)
[2018-06-28] MEDS ORDERED: EPHEDrine SULFATE 50 MG/5 ML SYG IV PRN (13:00)
[2018-06-28] MEDS ORDERED: FENTAnyl 50 MCG/ML VIAL IV PRN ×3 (13:00)
[2018-06-28] MEDS ORDERED: OXYCODONE/ACETAMINOPHEN (5/325) TAB PO PRN (13:00)
[2018-06-28] MEDS ORDERED: LIDOCAINE 2% JEL.PF.APP 5 ML UROJET SYRINGE MM ONE (13:02)
[2018-06-28] MEDS ORDERED: SUGAMMADEX SODIUM 200 MG/2 ML VIAL IV ONE (13:49)
--- NOTE | 2018-06-28 13:59 | OPR ---
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 The patient received 2 g of Ancef IV at the start of the procedure. Timeout was done and the patient was identified by her name,birthdate and the procedure and the side of the procedure. The patient was then positioned in the lithotomy position and the genital area was prepped and draped in the usual sterile manner. A 21 Malian cystoscope sheath was introduced into the bladder and urine was collected for culture and sensitivity. Right ureteral orifice was identified and then cannulated with a 5 Malian open ended ureteral catheter. A 0.035 zip wire was advanced through the open ended catheter all the way up to the kidney. The open-ended was removed leaving the zip wire in place. The open-ended was then introduced through the second working channel of the scope and the ureteral orifice was cannulated again and a 0.035 sensor wire was passed all the way up to the kidney. The open-ended was removed leaving the sensor wire in place. Then the cystoscope was removed. The sensor wire was used as a safety wire and the zip wire was used to advance the rigid ureteroscope on it into the ureter. The stone was then visualized and broken with the holmium lase r into pieces. These pieces were basketed and dropped into the bladder until the ureter was free of stone fragments. The ureteroscope was then removed. Cystoscopy was done again and the stone fragments were drained out of the bladder. Then the cystoscope was reintroduced into the bladder over the safety wire and a 6 Malian by 22 cm long JJ stent was advanced on the sensor wire, had its proximal end curling into the kidney and the distal end curling into the bladder. The distal end is connected to a string that was taped to the patient's right groin. The patient was transferred to recovery room in stable and satisfactory condition ASIM DALLAS MD Jun 28, 2018 13:59
--- NOTE | 2018-06-28 14:03 | PAC ---
Date/Time of Note Date/Time of Note DATE: 06/28/18 TIME: 14:01 Post-Anesthesia Notes Post-Anesthesia Note Last documented vital signs Vital Signs Date Temp Pulse Resp B/P (MAP) Pulse Ox O2 O2 Flow FiO2 Time Delivery Rate 06/28/18 98.0 78 18 112/54 99 Face Mask 8 L 14:08 (73) 06/28/18 98.0 71 18 95 07:27 06/28/18 Room Air 01:30 06/27/18 2.0 20:45 Activity: WNL Respiratory function: WNL Cardiovascular function: WNL Mental status: Baseline Pain reasonably controlled: Yes Hydration appropriate: Yes Nausea/Vomiting absent: Yes PAULA MCGRAW MD Jun 28, 2018 14:02
--- NOTE | 2018-06-28 17:59 | PN ---
Date/Time of Note Date/Time of Note DATE: 06/28/18 TIME OF EVALUATION: 10:51 Assessment/Plan VTE Prophylaxis Risk score (from Ns)>0 risk: 2 SCD applied (from Ns): Yes Pharmacological prophylaxis: NA/contraindicated Pharm contraindication: surgical contra Lines/Catheters IV [facility] Type [facility]from [facility] Peripheral IV Urinary Cath still in place: No Assessment/Plan Hospital Course S: No new complaints, for OR intervention today O: General: A&O x3, answering questions appropriately, elderly HEENT: NC/ AT. PERRL. EOM intact Neck: supple CVS: S1, S2, RRR. no murmurs. no pain on chest wall palpation Lungs: CTA b/l. no wheezing or rhonchi Abd: soft, nontender, +BS Ext: moving all extremities skin: no rashes assessment and plan: This is a 82-year-old female with a past medical history of kidney stones diabetes and hypertension who presented to the emergency department complaining of severe right flank pain, nausea and vomiting. She is currently admitted and managed as follows: #1 obstructive uropathy: - Secondary to right-sided 10 x 7 mm renal calculus resulting in hydroureteronephrosis. -appreciate urology input, operative intervention today #2 hypertension -improved control, monitor and adjust regimen as indicated #3 acute kidney injury r/o CKD -creatinine satying roughly the same, continue to monitor, continue to hold ARB -will get Nephro consult #4 diabetes mellitus: aic 6.9 -good control on home regimen, no changes at this time #5 hyperlipidemia: continue statin #6 DVT GI prophylaxis: SCDs, no GI prophylaxis indicated Further treatment strategy will be implemented as per the clinical course. Result Diagram: 06/28/18 0439 06/28/18 0439 Results 24hrs Laboratory Tests Test 06/27/18 22:57 06/28/18 00:02 06/28/18 00:54 06/28/18 04:39 Bedside Glucose 165 184 217 White Blood Count 13.4 H Red Blood Count 3.93 L Hemoglobin 11.8 L Hematocrit 35.0 L Mean Corpuscular 89.1 Volume Mean Corpuscular 30.0 Hemoglobin Mean Corpuscular 33.7 Hemoglobin Concen t Red Cell 12.8 Distribution Width Platelet Count 257 Mean Platelet 10.2 Volume Immature 0.500 H Granulocytes % Neutrophils % 76.0 Lymphocytes % 16.2 Monocytes % 6.7 Eosinophils % 0.3 Basophils % 0.3 Nucleated Red 0.0 Blood Cells % Immature 0.070 H Granulocytes # Neutrophils # 10.2 H Lymphocytes # 2.2 Monocytes # 0.9 Eosinophils # 0.0 Basophils # 0.0 Nucleated Red 0.0 Blood Cells # Prothrombin Time 12.8 Prothrombin Time 1.0 Ratio INR International 0.95 Normalized Ratio Activated 29.9 Partial Thrombopl ast Time Sodium Level 137 Potassium Level 4.1 Chloride Level 101 Carbon Dioxide 25 Level Anion Gap 11 Blood Urea 35 H Nitrogen Creatinine 1.69 H Est Glomerular Filtrat Rate mL/min Glucose Level 255 H Hemoglobin A1c 6.9 H Calcium Level 8.3 L Magnesium Level 1.5 L Total Bilirubin 0.4 Direct Bilirubin 0.00 Indirect 0.4 Bilirubin Aspartate Amino 27 Transf (AST/SGOT) Alanine 28 Aminotransferase (ALT/SGPT) Alkaline 55 Phosphatase Total Protein 6.1 # Albumin 3.3 Globulin 2.80 Albumin/Globulin 1.17 Ratio Thyroid 1.800 Stimulating Hormone (TSH) Test 06/28/18 09:25 06/28/18 09:38 06/28/18 10:53 06/28/18 12:00 Bedside Glucose 250 H 243 H Lab Scanned LAB Report Urine Color YELLOW Urine Clarity SLIGHTLY CLOUDY A Urine pH 5.0 Urine Specific 1.013 [place] Urine Ketones NEGATIVE Urine Nitrite NEGATIVE Urine Bilirubin NEGATIVE Urine NEGATIVE Urobilinogen Urine Leukocyte NEGATIVE Esterase Urine Microscopic 38 H RBC Urine Microscopic 1 WBC Urine Bacteria FEW A Urine Hemoglobin 3+ H Urine Glucose NEGATIVE Urine Total NEGATIVE Protein Test 06/28/18 14:01 06/28/18 17:01 Bedside Glucose 163 210 Exam/Review of Systems Exam Vitals Vital Signs Date Temp Pulse Resp B/P (MAP) Pulse Ox O2 O2 Flow FiO2 Time Delivery Rate 06/28/18 76 20 101/47 98 Room Air 14:48 (65) 06/28/18 8.0 14:08 06/28/18 98.2 14:06 Results Results 24hrs Laboratory Tests Test 06/27/18 22:57 06/28/18 00:02 06/28/18 00:54 06/28/18 04:39 Bedside Glucose 165 184 217 White Blood Count 13.4 H Red Blood Count 3.93 L Hemoglobin 11.8 L Hematocrit 35.0 L Mean Corpuscular 89.1 Volume Mean Corpuscular 30.0 Hemoglobin Mean Corpuscular 33.7 Hemoglobin Concen t Red Cell 12.8 Distribution Width Platelet Count 257 Mean Platelet 10.2 Volume Immature 0.500 H Granulocytes % Neutrophils % 76.0 Lymphocytes % 16.2 Monocytes % 6.7 Eosinophils % 0.3 Basophils % 0.3 Nucleated Red 0.0 Blood Cells % Immature 0.070 H Granulocytes # Neutrophils # 10.2 H Lymphocytes # 2.2 Monocytes # 0.9 Eosinophils # 0.0 Basophils # 0.0 Nucleated Red 0.0 Blood Cells # Prothrombin Time 12.8 Prothrombin Time 1.0 Ratio INR International 0.95 Normalized Ratio Activated 29.9 Partial Thrombopl ast Time Sodium Level 137 Potassium Level 4.1 Chloride Level 101 Carbon Dioxide 25 Level Anion Gap 11 Blood Urea 35 H Nitrogen Creatinine 1.69 H Est Glomerular Filtrat Rate mL/min Glucose Level 255 H Hemoglobin A1c 6.9 H Calcium Level 8.3 L Magnesium Level 1.5 L Total Bilirubin 0.4 Direct Bilirubin 0.00 Indirect 0.4 Bilirubin Aspartate Amino 27 Transf (AST/SGOT) Alanine 28 Aminotransferase (ALT/SGPT) Alkaline 55 Phosphatase Total Protein 6.1 # Albumin 3.3 Globulin 2.80 Albumin/Globulin 1.17 Ratio Thyroid 1.800 Stimulating Hormone (TSH) Test 06/28/18 09:25 06/28/18 09:38 06/28/18 10:53 06/28/18 12:00 Bedside Glucose 250 H 243 H Lab Scanned LAB Report Urine Color YELLOW Urine Clarity SLIGHTLY CLOUDY A Urine pH 5.0 Urine Specific 1.013 [place] Urine Ketones NEGATIVE Urine Nitrite NEGATIVE Urine Bilirubin NEGATIVE Urine NEGATIVE Urobilinogen Urine Leukocyte NEGATIVE Esterase Urine Microscopic 38 H RBC Urine Microscopic 1 WBC Urine Bacteria FEW A Urine Hemoglobin 3+ H Urine Glucose NEGATIVE Urine Total NEGATIVE Protein Test 06/28/18 14:01 06/28/18 17:01 Bedside Glucose 163 210 Medications Medication Current Medications Atenolol (Tenormin) 50 mg DAILY PO ; Start 06/28/18 at 09:00 IV Flush (NS 3 ml) 3 ml PER PROTOCOL IV ; Start 06/27/18 at 20:30 Ondansetron HCl (Zofran Inj) 4 mg Q6H PRN IV NAUSEA/VOMITING; Start 06/27/18 at 20:30 Acetaminophen (Tylenol Tab) 650 mg Q6H PRN PO .PAIN 1-3 OR TEMP; Start 06/27/18 at 20:30 Acetaminophen/ Hydrocodone Bitart ([place] (5/325)) 1 tab Q6H PRN PO .MOD PAIN 4- 6; Start 06/27/18 at 20:30 Docusate Sodium (Colace) 100 mg Q12H PRN PO .CONSTIPATION; Start 06/27/18 at 20:30 Bisacodyl (Dulcolax) 5 mg DAILY PRN PO .CONSTIPATION; Start 06/27/18 at 20:30 Hydromorphone HCl (Dilaudid) 0.5 mg Q4H PRN IV SEVERE PAIN LEVEL 7-10 Last administered on 06/28/18at 10:30; Admin Dose 0.5 MG; Start 06/27/18 at 22:30 Hydralazine HCl (Apresoline) 10 mg Q4H PRN IV ELEVATED BLOOD PRESSURE; Start 06/27/18 at 23:00 Insulin Glargine (Lantus) 40 units HS SC ; Start 06/28/18 at 21:00 Miscellaneous Information 1 ea NOTE XX ; Start 06/28/18 at 02:00 Glucose (Glutose) 15 gm Q15M PRN PO DECREASED GLUCOSE; Start 06/28/18 at 02:00 Glucose (Glutose) 22.5 gm Q15M PRN PO DECREASED GLUCOSE; Start 06/28/18 at 02:00 Dextrose (D50w Syringe) 25 ml Q15M PRN IV DECREASED GLUCOSE; Start 06/28/18 at 02:00 Dextrose (D50w Syringe) 50 ml Q15M PRN IV DECREASED GLUCOSE; Start 06/28/18 at 02:00 Glucagon (Glucagen) 1 mg Q15M PRN IM DECREASED GLUCOSE; Start 06/28/18 at 02:00 Glucose (Glutose) 15 gm Q15M PRN BUCCAL DECREASED GLUCOSE; Start 06/28/18 at 02:00 Atorvastatin Calcium (Lipitor) 20 mg HS PO ; Start 06/28/18 at 21:00 Hydromorphone HCl (Dilaudid) 0.2 mg PACU PRN IV MILD PAIN 1-3; Start 06/28/18 at 13:00; Stop 06/28/18 at 20:00 Hydromorphone HCl (Dilaudid) 0.4 mg PACU PRN IV MOD PAIN 4-6; Start 06/28/18 at 13:00; Stop 06/28/18 at 20:00 Hydromorphone HCl (Dilaudid) 0.6 mg PACU PRN IV SEVERE PAIN 7-10; Start 06/28/18 at 13:00; Stop 06/28/18 at 20:00 Fentanyl (Sublimaze) 25 mcg PACU ORDER PRN IV MILD PAIN 1-3; Start 06/28/18 at 13:00; Stop 06/28/18 at 20:00 Fentanyl (Sublimaze) 50 mcg PACU ORDER PRN IV MOD PAIN 4-6; Start 06/28/18 at 13:00; Stop 06/28/18 at 20:00 Fentanyl (Sublimaze) 75 mcg PACU ORDER PRN IV SEVERE PAIN 7-10; Start 06/28/18 at 13:00; Stop 06/28/18 at 20:00 Oxycodone/ Acetaminophen (Percocet (5/ 325)) 1 tab PACU ORDER PRN PO .PAIN 1-5; Start 06/28/18 at 13:00; Stop 06/28/18 at 20:00 Ondansetron HCl (Zofran Inj) 4 mg PACU ORDER PRN IV NAUSEA/VOMITING; Start 06/28/18 at 13:00; Stop 06/28/18 at 20:00 Metoclopramide HCl (Reglan) 10 mg PACU ORDER PRN IV NAUSEA/VOMITING; Start 06/28/18 at 13:00; Stop 06/28/18 at 20:00 Labetalol HCl (Labetalol) 5 mg PACU ORDER PRN IV HIGH BLOOD PRESSURE; Start 06/28/18 at 13:00; Stop 06/28/18 at 20:00 Hydralazine HCl (Apresoline) 5 mg PACU ORDER PRN IV HIGH BLOOD PRESSURE; Start 06/28/18 at 13:00; Stop 06/28/18 at 20:00 Ephedrine Sulfate 5 mg PACU ORDER PRN IV BLOOD PRESSURE SUPPORT; Start 06/28/18 at 13:00; Stop 06/28/18 at 20:00 Meperidine HCl (Demerol) 25 mg PACU ORDER PRN IV .RIGORS; Start 06/28/18 at 13:00; Stop 06/28/18 at 20:00 Diphenhydramine HCl (Benadryl) 25 mg PACU ORDER PRN IV .PRURITUS; Start 06/28/18 at 13:00; Stop 06/28/18 at 20:00 Insulin Aspart (Novolog Insulin Pen) NOVOLOG *MODERATE* ALGORITHM WITH MEALS BEDTIME SC Last administered on 06/28/18at 17:07; Admin Dose 4 UNIT; Start 06/28/18 at 17:55 ANGELA TRUJILLO Jun 28, 2018 17:58
[2018-06-28] MEDS ORDERED: ATORVASTATIN 20 MG TAB PO SCH (21:00)
[2018-06-28] MEDS ORDERED: INSULIN ASPART [NOVOLOG] 3 ML PEN SC ONE (21:00)
[2018-06-28] MEDS ORDERED: INSULIN GLARGINE [LANTus] (100 UNITS/ML) SYG SC SCH (21:00)
[2018-06-29] MEDS ORDERED: INSULIN ASPART [NOVOLOG] 3 ML PEN SC ONE (00:30)
[2018-06-29 02:47] VITALS: BP 123/60; PULSE 90; RESP 18
[2018-06-29 07:34] VITALS: BP 112/53; PULSE 93; RESP 18
--- NOTE | 2018-06-29 08:15 | CONS ---
Consult Date/Type/Reason Admit Date/Time Jun 27, 2018 at 19:35 Initial Consult Date 06/27/18 Type of Consultation: Urology Reason for Consultation Right ureteral stone Requesting Provider: NATY GRADY Date/Time of Note DATE: 06/29/18 TIME: 08:12 Subjective The patient states she is feeling better and has no pain but her urine is bloody. Objective Vitals Vital Signs Date Temp Pulse Resp B/P (MAP) Pulse Ox O2 O2 Flow FiO2 Time Delivery Rate 06/29/18 97.8 93 18 112/53 95 07:34 (72) 06/28/18 Room Air 14:48 06/28/18 8.0 14:08 Intake and Output 06/28/18 06/28/18 06/29/18 1515:00 23:00 07:00 IntakeIntake Total 2100 ml OutputOutput Total 5 ml BalanceBalance 2095 ml Exam Abdomen is soft and there is no flank tenderness Results/Medications Result Diagram: 06/29/18 0429 06/29/18 0429 Results 24 hrs Laboratory Tests Test 06/28/18 09:25 06/28/18 09:38 06/28/18 10:53 06/28/18 12:00 Bedside Glucose 250 H 243 H Lab Scanned LAB Report Urine Color YELLOW Urine Clarity SLIGHTLY CLOUDY A Urine pH 5.0 Urine Specific 1.013 [place] Urine Ketones NEGATIVE Urine Nitrite NEGATIVE Urine Bilirubin NEGATIVE Urine NEGATIVE Urobilinogen Urine Leukocyte NEGATIVE Esterase Urine Microscopic 38 H RBC Urine Microscopic 1 WBC Urine Bacteria FEW A Urine Hemoglobin 3+ H Urine Glucose NEGATIVE Urine Total NEGATIVE Protein Test 06/28/18 14:01 06/28/18 17:01 06/28/18 20:34 06/28/18 20:37 Bedside Glucose 163 210 403 *H 368 H Test 06/28/18 20:46 06/29/18 00:15 06/29/18 01:54 06/29/18 04:29 Glucose Level 428 #*H 258 #H Bedside Glucose 358 H 305 H White Blood Count 15.2 H Red Blood Count 3.91 L Hemoglobin 11.5 L Hematocrit 34.8 L Mean Corpuscular 89.0 Volume Mean Corpuscular 29.4 Hemoglobin Mean Corpuscular 33.0 Hemoglobin Concen t Red Cell 12.8 Distribution Width Platelet Count 284 Mean Platelet 10.2 Volume Immature 0.700 H Granulocytes % Neutrophils % 87.7 H Lymphocytes % 7.4 L Monocytes % 4.0 Eosinophils % 0.0 Basophils % 0.2 Nucleated Red 0.0 Blood Cells % Immature 0.110 H Granulocytes # Neutrophils # 13.3 H Lymphocytes # 1.1 Monocytes # 0.6 Eosinophils # 0.0 Basophils # 0.0 Nucleated Red 0.0 Blood Cells # Sodium Level 141 Potassium Level 4.1 Chloride Level 107 Carbon Dioxide 24 Level Anion Gap 10 Blood Urea 35 H Nitrogen Creatinine 1.36 H Est Glomerular Filtrat Rate mL/min Calcium Level 8.7 Total Bilirubin 0.2 Direct Bilirubin 0.00 Indirect 0.2 Bilirubin Aspartate Amino 19 Transf (AST/SGOT) Alanine 26 Aminotransferase (ALT/SGPT) Alkaline 58 Phosphatase Total Protein 6.1 Albumin 3.4 Globulin 2.70 Albumin/Globulin 1.25 Ratio Home Meds Reported Medications Atorvastatin Calcium (Atorvastatin Calcium) Unknown Strength Tablet, 1 TAB PO QHS, #30 TAB 06/27/18 Insulin Glargine,Hum.rec.anlog (Basaglar Kwikpen U-100) 100 Unit/1 Ml Insuln.pen, 40 UNIT SC QHS, EA 06/27/18 Insulin Aspart* (Novolog Insulin Pen*) 100 Unit/Ml Soln, 0 SC WITH MEALS, EA 06/27/18 Insulin Aspart* (Novolog Insulin Pen*) 100 Unit/Ml Soln, 1 UNIT SC WITH LUNCH, EA INJECT 10-12 UNITS 06/27/18 Aspirin* (Aspirin* EC) 81 Mg Tablet.dr, 81 MG PO DAILY, TAB 06/27/18 Sitagliptin Phos-Metformin Hcl (Janumet XR) 100-1,000 Mg Tbmp.24hr, 1 TAB PO WITH DINNER, #30 TAB 06/27/18 Losartan/Hydrochlorothiazide (Hyzaar 100-12.5 Tablet) 1 Each Tablet, 1 EACH PO QAM, TAB 06/27/18 Atenolol* (Atenolol*) 50 Mg Tablet, 50 MG PO DAILY, #30 TAB 06/27/18 Discontinued Reported Medications Rosuvastatin Calcium* (Crestor*) 10 Mg Tablet, 10 MG PO HS, TAB 03/23/14 Atenolol* (Atenolol*) 50 Mg Tablet, 50 MG PO DAILY, TAB 03/23/14 Valsartan-Hydrochlorothiazide (Valsartan-HCTZ) 160-25 Mg Tablet, 1 EACH PO DAILY, TAB 03/23/14 Discontinued Scripts Sitagliptin* (Januvia*) 50 Mg Tab, 25 MG PO DAILY for 30 Days Prov:ANGELA TRUJILLOSvitlana 03/27/14 Medications Current Medications Atenolol (Tenormin) 50 mg DAILY PO ; Start 06/28/18 at 09:00 IV Flush (NS 3 ml) 3 ml PER PROTOCOL IV ; Start 06/27/18 at 20:30 Ondansetron HCl (Zofran Inj) 4 mg Q6H PRN IV NAUSEA/VOMITING; Start 06/27/18 at 20:30 Acetaminophen (Tylenol Tab) 650 mg Q6H PRN PO .PAIN 1-3 OR TEMP; Start 06/27/18 at 20:30 Acetaminophen/ Hydrocodone Bitart ([place] (5/325)) 1 tab Q6H PRN PO .MOD PAIN 4- 6; Start 06/27/18 at 20:30 Docusate Sodium (Colace) 100 mg Q12H PRN PO .CONSTIPATION; Start 06/27/18 at 20:30 Bisacodyl (Dulcolax) 5 mg DAILY PRN PO .CONSTIPATION; Start 06/27/18 at 20:30 Hydromorphone HCl (Dilaudid) 0.5 mg Q4H PRN IV SEVERE PAIN LEVEL 7-10 Last administered on 06/28/18at 10:30; Admin Dose 0.5 MG; Start 06/27/18 at 22:30 Hydralazine HCl (Apresoline) 10 mg Q4H PRN IV ELEVATED BLOOD PRESSURE; Start 06/27/18 at 23:00 Insulin Glargine (Lantus) 40 units HS SC Last administered on 06/28/18at 20:45; Admin Dose 40 UNITS; Start 06/28/18 at 21:00 Miscellaneous Information 1 ea NOTE XX ; Start 06/28/18 at 02:00 Glucose (Glutose) 15 gm Q15M PRN PO DECREASED GLUCOSE; Start 06/28/18 at 02:00 Glucose (Glutose) 22.5 gm Q15M PRN PO DECREASED GLUCOSE; Start 06/28/18 at 02:00 Dextrose (D50w Syringe) 25 ml Q15M PRN IV DECREASED GLUCOSE; Start 06/28/18 at 02:00 Dextrose (D50w Syringe) 50 ml Q15M PRN IV DECREASED GLUCOSE; Start 06/28/18 at 02:00 Glucagon (Glucagen) 1 mg Q15M PRN IM DECREASED GLUCOSE; Start 06/28/18 at 02:00 Glucose (Glutose) 15 gm Q15M PRN BUCCAL DECREASED GLUCOSE; Start 06/28/18 at 02:00 Atorvastatin Calcium (Lipitor) 20 mg HS PO Last administered on 06/28/18at 20:44; Admin Dose 20 MG; Start 06/28/18 at 21:00 Insulin Aspart (Novolog Insulin Pen) NOVOLOG *MODERATE* ALGORITHM WITH MEALS BEDTIME SC Last administered on 06/28/18at 20:47; Admin Dose 4 UNIT; Start 06/28/18 at 17:55 Assessment/Plan Hospital Course (Demo Recall) 82-year-old female presented to the hospital with severe right flank pain associated with nausea and vomiting. She underwent a CT scan of the abdomen and pelvis and that showed: 1- Mild to moderate right hydroureteronephrosis. Stranding of the right perinephric fat. There is an obstructing distal right ureteral calculus measuring 10 x 7 mm. Findings are consistent with right obstructive uropathy. 2. Mild diverticulosis of the colon. No findings of acute diverticulitis. Patient does have a history of kidney stones and has undergone what appears to be ureteroscopy and laser lithotripsy in the past. Patient remains nauseated and vomiting. On the CT scan she does have a 14 mm stone in the lower pole of the left kidney and that is not symptomatic. On the right side however the stone is 7 x 10 mm in size and it is obstructing and it is located at the lower edge of the sacroiliac joint area. Impression: Right ureteral stone 7 x 10 mm with obstruction and hydronephrosis. Patient underwent right ureteroscopy, laser lithotripsy and removal of the stone fragments from the right ureter. She does have a right ureteral JJ stent. Her white count is 15.2 the urine culture is still pending her blood sugar has been high. From a urological standpoint she may be discharged home on oral antibiotic and pain medications and I will see her in the office on Wednesday to remove the JJ stent. She may see blood in her urine and that is not unusual when a patient has a stent BEJJANI,ASIM K MD Jun 29, 2018 08:15
[2018-06-29] MEDS: ATENOLOL 50 MG TAB PO SCH (09:19)
[2018-06-29] MEDS: INSULIN ASPART [NOVOLOG] 3 ML PEN SC SCH ×2 (09:19→12:53)
[2018-06-29] MEDS ORDERED: LOSA1TAB9 PO (13:07)
--- NOTE | 2018-06-29 13:07 | DS ---
Date/Time of Note Date/Time of Note DATE: 06/29/18 TIME: 13:03 Discharge Summary Admission/Discharge Info Admit Date/Time Jun 27, 2018 at 19:35 Discharge Date/Time Discharge Diagnosis This is a 82-year-old female with a past medical history of kidney stones di abetes and hypertension who presented to the emergency department complaining of severe right flank pain, nausea and vomiting. She is currently admitted and managed as follows: #1 obstructive uropathy: - Secondary to right-sided 10 x 7 mm renal calculus resulting in hydroureteronephrosis. -appreciate urology input, operative intervention today #2 hypertension -improved control, monitor and adjust regimen as indicated #3 acute kidney injury r/o CKD -creatinine satying roughly the same, continue to monitor, continue to hold ARB -will get Nephro consult #4 diabetes mellitus: aic 6.9 -good control on home regimen, no changes at this time #5 hyperlipidemia: continue statin #6 DVT GI prophylaxis: SCDs, no GI prophylaxis indicated Hospital Course On the CT scan she does have a 14 mm stone in the lower pole of the left kidney and that is not symptomatic. On the right side however the stone is 7 x 10 mm in size and it is obstructing and it is located at the lower edge of the sacroiliac joint area. Impression: Right ureteral stone 7 x 10 mm with obstruction and hydronephrosis. Patient underwent right ureteroscopy, laser lithotripsy and removal of the stone fragments from the right ureter. She does have a right ureteral JJ stent. Her white count is 15.2 the urine culture is still pending her blood sugar has been high. From a urological standpoint she may be discharged home on oral antibiotic and pain medications and I will see her in the office on Wednesday to remove the JJ stent. She may see blood in her urine and that is not unusual when a patient has a stent Home Meds Reported Medications Atorvastatin Calcium (Atorvastatin Calcium) Unknown Strength Tablet, 1 TAB PO QHS, #30 TAB 06/27/18 Insulin Glargine,Hum.rec.anlog (Basaglar Kwikpen U-100) 100 Unit/1 Ml Insuln.pen, 40 UNIT SC QHS, EA 06/27/18 Insulin Aspart* (Novolog Insulin Pen*) 100 Unit/Ml Soln, 0 SC WITH MEALS, EA 06/27/18 Insulin Aspart* (Novolog Insulin Pen*) 100 Unit/Ml Soln, 1 UNIT SC WITH LUNCH, EA INJECT 10-12 UNITS 06/27/18 Aspirin* (Aspirin* EC) 81 Mg Tablet.dr, 81 MG PO DAILY, TAB 06/27/18 Sitagliptin Phos-Metformin Hcl (Janumet XR) 100-1,000 Mg Tbmp.24hr, 1 TAB PO WITH DINNER, #30 TAB 06/27/18 Losartan/Hydrochlorothiazide (Hyzaar 100-12.5 Tablet) 1 Each Tablet, 1 EACH PO QAM, TAB 06/27/18 Atenolol* (Atenolol*) 50 Mg Tablet, 50 MG PO DAILY, #30 TAB 06/27/18 Discontinued Reported Medications Rosuvastatin Calcium* (Crestor*) 10 Mg Tablet, 10 MG PO HS, TAB 03/23/14 Atenolol* (Atenolol*) 50 Mg Tablet, 50 MG PO DAILY, TAB 03/23/14 Valsartan-Hydrochlorothiazide (Valsartan-HCTZ) 160-25 Mg Tablet, 1 EACH PO DAILY, TAB 03/23/14 Discontinued Scripts Sitagliptin* (Januvia*) 50 Mg Tab, 25 MG PO DAILY for 30 Days Prov:ANGELA TRUJILLO 03/27/14 Primary Care Provider Not On Staff Doctor Pending Labs Laboratory Tests Test 06/28/18 14:01 06/28/18 17:01 06/28/18 20:34 06/28/18 20:37 Bedside 163 210 403 368 Glucose mg/dL (70-220) mg/dL (70-220) mg/dL (70-220) mg/dL (70-220) Test 06/28/18 20:46 06/29/18 00:15 06/29/18 01:54 06/29/18 04:29 Glucose Level 428 258 mg/dl (70-220) mg/dl (70-220) Bedside 358 305 Glucose mg/dL (70-220) mg/dL (70-220) White Blood 15.2 Count 10^3/ul (4.8-1 0.8) Red Blood 3.91 Count 10^6/ul (4.20- 5.40) Hemoglobin 11.5 g/dl (12.0-16. 0) Hematocrit 34.8 % (37.0-47.0) Mean 89.0 Corpuscular fl (82.0-101.0 Volume ) Mean 29.4 Corpuscular pg (29.0-33.0) Hemoglobin Mean 33.0 Corpuscular g/dl (32.0-37. Hemoglobin Conc 0) ent Red Cell 12.8 Distribution % (11.5-14.5) Width Platelet Count 284 10^3/UL (140-4 15) Mean Platelet 10.2 Volume fl (7.4-10.4) Immature 0.700 Granulocytes % % (0.001-0.429 ) Neutrophils % 87.7 % (39.0-77.0) Lymphocytes % 7.4 % (15.0-51.0) Monocytes % 4.0 % (0.0-11.0) Eosinophils % 0.0 % (0.0-7.0) Basophils % 0.2 % (0.0-2.0) Nucleated Red 0.0 Blood Cells % /100WBC (0.0-0 .0) Immature 0.110 Granulocytes # 10^3/ul (0.0-0 .031) Neutrophils # 13.3 10^3/ul (1.6-7 .5) Lymphocytes # 1.1 10^3/ul (0.8-2 .9) Monocytes # 0.6 10^3/ul (0.3-0 .9) Eosinophils # 0.0 10^3/ul (0.0-0 .5) Basophils # 0.0 10^3/ul (0.0-0 .1) Nucleated Red 0.0 Blood Cells # 10^3/ul (0.0-0 .0) Sodium Level 141 mmol/L (135-14 4) Potassium 4.1 Level mmol/L (3.5-5. 1) Chloride Level 107 mmol/L (97-110 ) Carbon Dioxide 24 Level mmol/L (21-31) Anion Gap 10 (5-13) Blood Urea 35 Nitrogen mg/dl (7-20) Creatinine 1.36 mg/dl (0.44-1. 00) Est Glomerular mL/min (>60) Filtrat Rate mL/min Calcium Level 8.7 mg/dl (8.4-10. 2) Total 0.2 Bilirubin mg/dl (0.2-1.3 ) Direct 0.00 Bilirubin mg/dl (0.00-0. 20) Indirect 0.2 Bilirubin mg/dl (0-1.1) Aspartate Amino 19 Transf (AST/SGO IU/L (15-46) T) Alanine 26 Aminotransferas IU/L (13-69) e (ALT/SGPT) Alkaline 58 Phosphatase IU/L (42-121) Total Protein 6.1 g/dl (6.1-8.1) Albumin 3.4 g/dl (3.3-4.9) Globulin 2.70 g/dl (1.3-3.2) Albumin/Globuli 1.25 n Ratio Test 06/29/18 09:15 06/29/18 12:50 Bedside 197 201 Glucose mg/dL (70-220) mg/dL (70-220) ANGELA TRUJILLO Jun 29, 2018 13:07
[2018-06-29] MEDS ORDERED: SITA1TBM7 PO (13:09)
--- NOTE | 2018-06-29 13:14 | PDOCDIS ---
Discharge Instructions DIAGNOSIS Discharge Diagnosis #1 obstructive uropathy: - Secondary to right-sided 10 x 7 mm renal calculus resulting in hydroureteronephrosis. #2 hypertension #3 acute kidney injury r/o CKD improved #4 diabetes mellitus: aic 6.9 #5 hyperlipidemia: CONDITION [id number] Patient Condition: [id number] Stable HOME CARE INSTRUCTIONS: [id number] Diet Instructions: [id number] Carb Controlled ACTIVITY: [id number] Activity Restrictions: [id number] Slowly Increase Activity Rest between Activity Avoid Heavy Housework [id number] Bathing Restrictions: [id number] no shower until Wednesday FOLLOW UP/APPOINTMENTS Follow-up Plan Name, Degree: Hermes Martinez MD Specialty: Urology Comments: Office Address: [address] [place] [address] [place] [id number] Office Office Review your medication list with your nurse before leaving and if you need new prescriptions please let your nurse know. I may have made changes to your home medications or given you new prescriptions, please let your primary doctor know as well. Stay compliant with your medications and report any side effects to your PCP or pharmacist. Return to the ER if you have any concerns and cannot reach your doctors or call your insurance company, they usually have a nurse that can help you. OTHER ORDERS: Other Orders: PLEASE AVOID NSAIDS - (Ibuprofen, aleve, high dose apirin, motrin, diclofenac) for now until cleared by your doctor. The kidney stone caused a mild decline in your renal function, please have your primary doctor recheck your kidney tests in about 1 week to ensure it has recovered. . ANGELA TRUJILLO Jun 29, 2018 13:14
[2018-06-29] MEDS ORDERED: NOVO3I SC (13:16)
[2018-06-29] MEDS ORDERED: LEVO500T48 PO (13:19)
[2018-06-29] MEDS ORDERED: LACT1CAP57 PO (13:19)
--- NOTE | 2018-06-29 15:35 | RADRPT ---
Vent Rate: 65 bpm RR Interval: 0 msec [place] Interval: 184 msec QRS Duration: 88 msec QT Interval: 436 msec QTC Interval: 453 msec P-R-T [place]: 46 - 16 - 33 degrees Normal sinus rhythm Normal ECG Electronically Signed By: Papo Dubose
== END 2018-06-29 13:55 | disposition home or self-care (01) | DRG 661 ==
LOC: E/R 16:02 → MS1 19:35
PROVIDERS: ADMIT Family Medicine; ATTEND Family Medicine
PROC: 0T768DZ Dilation of Right Ureter with Intraluminal Device, Via Natural or Artificial Opening Endoscopic (ICD-10-PCS; 2018-06-28)
PROC: 0TC68ZZ Extirpation of Matter from Right Ureter, Via Natural or Artificial Opening Endoscopic (ICD-10-PCS; principal; 2018-06-28 12:00)
DX: N13.2 Hydronephrosis with renal and ureteral calculous obstruction (principal); I10 Essential (primary) hypertension; N17.9 Acute kidney failure, unspecified; E11.9 Type 2 diabetes mellitus without complications; E78.5 Hyperlipidemia, unspecified; K57.90 Diverticulosis of intestine, part unspecified, without perforation or abscess without bleeding; Z79.82 Long term (current) use of aspirin; Z79.4 Long term (current) use of insulin; Z87.442 Personal history of urinary calculi; Z90.49 Acquired absence of other specified parts of digestive tract
CPT/HCPCS: 36415; 71045; 74176; 74430; 80053; 81001; 81003; 82947; 82962; 83036; 83690; 83735; 84443; 85025; 85610; 85730; 87086; 88300; 93005; 96374; 96375; 96376; C2617; J0690; J0696; J1100; J1170; J1815; J2270; J2370; J2405; J2765; J3010; J7030; J7042